=== PATIENT | male | born 1975 | race Caucasian/White ===

== ENCOUNTER 2016-11-06 19:29 | Emergency (ER) | payer OTHER ==
--- NOTE | 2016-11-06 20:55 | UC ---
Throat Pain/Nasal Wes HPI - HPI Summary HPI Summary: compalint of sore throat that started 2 days ago intermittent headache cough that started today fever and chills muscle achinees and back pain 2 daysa go felt fatigued light headed then had vomited 4-5x denies diarrhea today he denies dizziness, chest pain shortness of breath took some tylenol last night with some relief - History of Current Complaint Chief Complaint: UCRespiratory Stated Complaint: SORETHROAT Time Seen by Provider: 11/06/16 20:42 Hx Obtained From: Patient - Allergies/Home Medications Allergies/Adverse Reactions: Allergies Allergy/AdvReac Type Severity Reaction Status Date / Time No Known Allergies Allergy Verified 11/06/16 20:24 PMH/Surg Hx/FS Hx/Imm Hx Previously Healthy: Yes GI/ History Of: Denies: Kidney Stones - Surgical History Surgical History: Yes Surgery Procedure, Year, and Place: Gallbladder - Family History Known Family History: Negative: Cardiac Disease, Hypertension, Diabetes - Social History Occupation: Employed Full-time Lives: With Family Alcohol Use: None Substance Use Type: None Smoking Status (MU): Never Smoked Tobacco Review of Systems Constitutional: Fever Skin: Negative Eyes: Negative ENT: Sore Throat, Nasal Discharge Respiratory: Cough Cardiovascular: Negative Gastrointestinal: Negative Genitourinary: Negative Motor: Negative Neurovascular: Negative Musculoskeletal: Negative Neurological: Negative Psychological: Negative All Other Systems Reviewed And Are Negative: Yes Physical Exam Triage Information Reviewed: Yes Appearance: No Pain Distress, Well-Nourished, Obese Vital Signs: Initial Vital Signs Temp 99.4 F 11/06/16 20:18 Pulse 85 11/06/16 20:18 Resp 12 11/06/16 20:18 BP 153/78 11/06/16 20:18 Pulse Ox 99 11/06/16 20:18 Vital Signs Reviewed: Yes Eyes: Positive: Conjunctiva Clear ENT: Positive: Pharyngeal erythema, Nasal congestion, Nasal drainage, Tonsillar swelling, Tonsillar exudate Dental: Positive: Cervical Lymphadenopathy Respiratory: Positive: Lungs clear, Normal breath sounds, No respiratory distress, No accessory muscle use Cardiovascular: Positive: RRR, No Murmur, Pulses Normal Abdomen Description: Positive: Nontender, Soft Bowel Sounds: Positive: Present Musculoskeletal: Positive: No Edema Neurological: Positive: Alert Psychological Exam: Normal Skin Exam: Normal Throat Pain/Nasal Course/Dx - Differential Dx/Diagnosis Differential Diagnosis/HQI/PQRI: Influenza, Pharyngitis, Tonsillitis Provider Diagnoses: strep pharyngitis Discharge - Discharge Plan Condition: Stable Disposition: HOME Patient Education Materials: Strep Throat (ED) Referrals: Danyelle Hollins MD [Primary Care Provider] - Additional Instructions: Your blood pressure is elevated. Please contact your primary care provider within 1 day -4 weeks for further evaluation. Please take antibiotic as directed Increase fluids and rest Take acetaminophen or ibuprofen for fever or pain Please review your discharge instructions. If your symptoms do not improve please call your primary care provider or return to urgent care.
[2016-11-06] MEDS ORDERED: Penicillin VK TAB* 250 MG PO ONE (21:28)
[2016-11-06 21:51] VITALS: BP 144/81
== END 2016-11-06 21:48 | disposition home or self-care (01) ==
LOC: UCEAST 19:29
DX: J02.0 Streptococcal pharyngitis (principal); Z90.49 Acquired absence of other specified parts of digestive tract; E66.9 Obesity, unspecified
CPT/HCPCS: 87502; 87651; 99202; A9270-GY; G0463